=== PATIENT | male | born 1995 | race Caucasian/White ===

== ENCOUNTER → 2018-12-09 | Outpatient (REF) | payer OTHER | LOC: M SFHCLERA 11:59 | PROVIDERS: ATTEND Physician Assistant | DX: J02.9 Acute pharyngitis, unspecified (principal) ==

== ENCOUNTER → 2024-05-14 | Outpatient (REF) | payer BC, OTHER | LOC: M SMT 17:42 | PROVIDERS: ATTEND Urology | DX: Z30.2 Encounter for sterilization (principal) ==